=== PATIENT | male | born 2000 | race Caucasian/White ===

== ENCOUNTER → 2019-11-07 | Outpatient (CLI) | payer OTHER ==
[~2019-11-07] MED LIST: ALBU17AE23; IBP600T1 PO
--- NOTE | 2019-11-07 08:58 | Diagnostic Imaging Report ---
INDICATION: Elevated liver enzymes. PROCEDURE: Ultrasound abdomen complete. TECHNIQUE: Multiple real-time grayscale images were obtained of the abdomen in various projections. The liver is enlarged measuring 25 cm. There is diffuse increased echogenicity consistent with hepatic steatosis. No discrete liver mass is identified. The portal vein is patent and demonstrates normal direction of flow. Gallbladder is without stones or sludge. No wall thickening or biliary ductal dilatation is identified. Pancreas is nonvisualized due to overlying bowel gas and patient body habitus. Spleen is enlarged measuring 18 cm. Kidneys are unremarkable. There is normal cortical thickness and echogenicity. No calculi or hydronephrosis is identified. There is no ascites. Aorta and IVC cannot be visualized. IMPRESSION: 1. Hepatosplenomegaly and hepatic steatosis. 2. No evidence of cholelithiasis or acute cholecystitis. Dictated by: Dictated on workstation # [id number]
== END ==
LOC: RAD 06:57
PROVIDERS: ATTEND Family Medicine
DX: K76.0 Fatty (change of) liver, not elsewhere classified (principal); R16.2 Hepatomegaly with splenomegaly, not elsewhere classified
CPT/HCPCS: 76700